=== PATIENT | male | born 1980 ===

== ENCOUNTER 2024-09-15 06:53 | Day surgery (SDC) | payer OTHER ==
[2024-09-08 11:57] VITALS: BP 108/68
[~2024-09-15] VITALS: Ht 180.3 cm; Wt 120.2 kg
[~2024-09-15 06:53] MED LIST: COZAAR25 MG; DYRENIUM50 MG; SIMVASTATIN5 MG; TOPROL XL100 M1 PO
[2024-09-15] MEDS ORDERED: CEFAZOLIN SODIUM 1,000 MG VIAL ONE (14:09)
[2024-09-15] MEDS ORDERED: SUGAMMADEX SODIUM 200 MG/2 ML VIAL IV ONE (18:12)
[2024-09-15] MEDS ORDERED: MORPHINE SULFATE 4 MG/ML VIAL IV ONE ×2 (20:10)
== END 2024-09-15 22:40 | disposition home or self-care (01) ==
LOC: CIR.AMB 06:53
PROVIDERS: ATTEND Surgery
DX: K40.20 Bilateral inguinal hernia, without obstruction or gangrene, not specified as recurrent (principal); I10 Essential (primary) hypertension; J45.909 Unspecified asthma, uncomplicated; E78.5 Hyperlipidemia, unspecified
CPT/HCPCS: 49650; C1781